=== PATIENT | male | born 1960 | race Caucasian/White ===

== ENCOUNTER 2023-03-24 09:41 | Inpatient (IN) | payer BC, OTHER ==
[2023-03-24] VITALS (24 sets, daily range): BP systolic 102–131; BP diastolic 63–81
[~2023-03-24] VITALS: Ht 193 cm; Wt 111.6 kg
[2023-03-24] MEDS ORDERED: AMIODARONE HCL (50 MG/ ML) 3 ML VIAL IV ONE (09:51)
[2023-03-24] MEDS ORDERED: AMIODARONE 450mg/250ml AE 250 ML IV ONE (09:51)
[2023-03-24] MEDS ORDERED: AMIODARONE HCL 150 MG in D5W 5% 100 ML IV ONE (10:00)
[2023-03-24] MEDS ORDERED: HEPARIN SODIUM (PORCINE) 5000 UNITS/ML 1ML VIAL IV ONE (10:00)
[2023-03-24] MEDS ORDERED: ONDANSETRON HCL 4 MG/2 ML VIAL IV ONE (10:00)
[2023-03-24] MEDS ORDERED: MORPHINE SULFATE 4 MG/ML SYR/VIAL IV ONE (10:00)
[2023-03-24 10:05] LABS: Basophils # (auto) 0.1 10 ^3/uL (0-0.2); Basophils % (auto) 0.9 % (0.0-2.0); Eosinophils # (auto) 0 10 ^3/uL (0-0.8); Eosinophils % (auto) 0.5 % (0.0-7.0); Hematocrit 49.5 % (41.0-53.0); Lymphocytes # (auto) 4.4 10 ^3/uL (0.4-5.4); Lymphocytes % (auto) 48.4 % (10.0-50.0); Mean Corpuscular Hgb Conc. 34.4 g/dL (32.0-36.0); Mean Corpuscular Volume 93.2 fL (80.0-100.0); Monocytes # (auto) 0.6 10 ^3/uL (0-1.3); Monocytes % (auto) 6.2 % (0.0-12.0); Neutrophils # (auto) 3.9 10 ^3/uL (1.6-8.6); Nucleated Red Blood Cells % 0.2 %; Red Blood Cells 5.32 10^6/uL (4.5-5.90); Red Cell Distribution Width 13.5 % (11.8-14.3)
[2023-03-24] MEDS ORDERED: AMIODARONE 450mg/250ml AE 250 ML IV SCH ×2 (10:15→16:15)
[2023-03-24] MEDS ORDERED: MORPHINE SULFATE INJ 2 MG/ml SYRG IV ONE (10:15)
[2023-03-24 10:24] LABS: Calcium 9.2 mg/dL (8.5-10.1); Potassium 3.5 mmol/L (3.5-5.1)
[2023-03-24 10:28] LABS: Total Protein 7.5 g/dL (6.4-8.2)
[2023-03-24] MEDS ORDERED: fentaNYL CITRATE 100 MCG/2 ML VL ONE (10:30)
[2023-03-24] MEDS ORDERED: VERAPAMIL 2.5MG/ML INJ 2ML VIAL IV ONE (10:30)
[2023-03-24] MEDS ORDERED: MIDAZOLAM HCL 2MG/2ML 2ml VIAL (1mg/ml) ONE (10:30)
[2023-03-24] MEDS ORDERED: ATROPINE SULF 1 MG/10ml SYR ONE (10:30)
[2023-03-24] MEDS ORDERED: ANGIOMAX 250 MG VIAL IV ONE ×2 (10:30→11:24)
[2023-03-24] MEDS ORDERED: EPINEPHrine HCL 1 MG/10 ML SYRG ONE (10:31)
[2023-03-24] MEDS ORDERED: LIDOCAINE 2%HCL (LOCAL ANESTH.) INJ 20ML MDV ONE (10:31)
[2023-03-24] MEDS ORDERED: SODIUM CHL 0.9% 50 ML ONE ×2 (10:31→11:24)
[2023-03-24] MEDS ORDERED: IODIXANOL 320MG/ML 100ML BTL IV ONE ×2 (10:36→11:13)
[2023-03-24] MEDS ORDERED: MORPHINE SULFATE INJ 2 MG/ml SYRG IV PRN ×2 (10:45→11:45)
[2023-03-24] MEDS ORDERED: NITROGLYCERIN 0.4 MG SL TAB SL PRN ×2 (10:45→11:45)
[2023-03-24] MEDS ORDERED: TICAGRELOR 90 MG TAB ONE (11:08)
[2023-03-24 11:09] LABS: INR 1.04 (0.9-1.15); Partial Thromboplastin Time 24.4 SEC (24.5-34.5)
[2023-03-24] MEDS ORDERED: ADENOSINE 6 MG/2 ML INJ IV ONE (11:10)
[2023-03-24 11:16] LABS: Cholesterol 224 mg/dL (< 200); Triglycerides 161 mg/dL (< 150)
[2023-03-24 11:20] LABS: HDL Cholesterol 36 mg/dL (40-59); LDL Cholesterol 154 mg/dL (< 100)
[2023-03-24] MEDS ORDERED: HALOPERIDOL LACTATE 5 MG/ML INJ VIAL IM ONE (12:00)
[2023-03-24] MEDS ORDERED: LISI-275 PO (12:48)
[2023-03-24] MEDS ORDERED: ONDANSETRON HCL 4 MG/2 ML VIAL IV PRN (13:30)
[2023-03-24] MEDS: ASPirin 81 mg TAB PO SCH (13:56)
[2023-03-24] MEDS ORDERED: AMIODARONE HCL 200 MG TAB PO ONE (15:45)
[2023-03-24] MEDS ORDERED: MAGNESIUM SULFATE 1GM/100ML 100 ML IV ONE (16:00)
[2023-03-24] MEDS ORDERED: POTASSIUM CHL 20 Meq TABLET PO ONE (16:00)
[2023-03-24 19:39] LABS: Urine WBC None Seen /hpf (0 - 3)
[2023-03-24 20:55] LABS: Urine Bacteria FEW /hpf (None Seen); Urine Blood Negative /uL (Negative); Urine Mucus FEW (None Seen)
[2023-03-24 20:58] LABS: Urine Specific Gravity > 1.050 (1.001-1.035)
[2023-03-24] MEDS: SACUBITRIL-VALSARTAN 24mg/26mg TAB PO SCH (22:46)
[2023-03-24] MEDS: AMIODARONE HCL 200 MG TAB PO SCH (22:46)
[2023-03-24] MEDS: METOPROLOL TARTRATE 25 MG TAB PO SCH (22:47)
[2023-03-24] MEDS: ATORVASTATIN 20 MG TAB PO SCH (22:48)
[2023-03-24] MEDS: TICAGRELOR 90 MG TAB PO SCH (22:48)
[2023-03-25] VITALS (23 sets, daily range): BP systolic 95–114; BP diastolic 51–71
[2023-03-25 05:08] LABS: Basophils # (auto) 0 10 ^3/uL (0-0.2); Basophils % (auto) 0.1 % (0.0-2.0); Eosinophils # (auto) 0 10 ^3/uL (0-0.8); Eosinophils % (auto) 0.2 % (0.0-7.0); Hematocrit 46.7 % (41.0-53.0); Hemoglobin 16.5 g/dL (13.5-17.5); Lymphocytes # (auto) 1.6 10 ^3/uL (0.4-5.4); Lymphocytes % (auto) 16.4 % (10.0-50.0); Mean Corpuscular Hgb Conc. 35.3 g/dL (32.0-36.0); Mean Corpuscular Volume 93.4 fL (80.0-100.0); Monocytes # (auto) 0.6 10 ^3/uL (0-1.3); Monocytes % (auto) 6.3 % (0.0-12.0); Neutrophils # (auto) 7.5 10 ^3/uL (1.6-8.6); Nucleated Red Blood Cells % 0.1 %; Red Cell Distribution Width 13.5 % (11.8-14.3); White Blood Cell 9.7 10^3/uL (4.4-10.8)
[2023-03-25 05:25] LABS: Albumin 3.7 g/dL (3.4-5.0); Calcium 8.4 mg/dL (8.5-10.1); Magnesium 2.3 mg/dL (1.6-2.6); Potassium 3.9 mmol/L (3.5-5.1)
[2023-03-25 05:28] LABS: BUN/Creatinine Ratio 15.4 (10.0-20.0)
[2023-03-25 05:39] LABS: Bilirubin, Total 1.3 mg/dL (0.2-1.0); Total Protein 6.9 g/dL (6.4-8.2)
[2023-03-25] MEDS: AMIODARONE HCL 200 MG TAB PO SCH (09:44)
[2023-03-25] MEDS: TICAGRELOR 90 MG TAB PO SCH ×2 (09:44→23:22)
[2023-03-25] MEDS: SACUBITRIL-VALSARTAN 24mg/26mg TAB PO SCH ×2 (09:44→23:22)
[2023-03-25] MEDS: ASPirin 81 mg TAB PO SCH (09:45)
[2023-03-25] MEDS: METOPROLOL TARTRATE 25 MG TAB PO SCH (09:46)
[2023-03-25] MEDS: HYDROcodone-ACET 5/325MG TAB PO PRN ×2 (15:14→23:23)
[2023-03-25] MEDS: CARVEDILOL 3.125 MG TAB PO SCH (22:00)
[2023-03-25] MEDS: ATORVASTATIN 20 MG TAB PO SCH (23:23)
[2023-03-26] VITALS (17 sets, daily range): BP systolic 72–123; BP diastolic 40–76
[2023-03-26] MEDS: HYDROcodone-ACET 5/325MG TAB PO PRN (08:40)
[2023-03-26] MEDS: CARVEDILOL 3.125 MG TAB PO SCH ×2 (09:54→21:14)
[2023-03-26] MEDS: SACUBITRIL-VALSARTAN 24mg/26mg TAB PO SCH ×2 (09:55→21:08)
[2023-03-26] MEDS: TICAGRELOR 90 MG TAB PO SCH ×2 (09:55→21:18)
[2023-03-26] MEDS: ASPirin 81 mg TAB PO SCH (09:55)
[2023-03-26] MEDS ORDERED: ERGOCALCIFEROL 50,000 UNIT(1.25MG) CAP PO SCH (15:45)
[2023-03-26] MEDS: ATORVASTATIN 20 MG TAB PO SCH (21:09)
[2023-03-27 05:00] VITALS: BP 110/70
[2023-03-27 06:30] LABS: Basophils # (auto) 0 10 ^3/uL (0-0.2); Basophils % (auto) 0.2 % (0.0-2.0); Eosinophils # (auto) 0.1 10 ^3/uL (0-0.8); Eosinophils % (auto) 0.9 % (0.0-7.0); Hematocrit 47.8 % (41.0-53.0); Hemoglobin 16.7 g/dL (13.5-17.5); Lymphocytes # (auto) 1.8 10 ^3/uL (0.4-5.4); Lymphocytes % (auto) 23.9 % (10.0-50.0); Mean Corpuscular Hemoglobin 32.9 pg (28.0-32.0); Mean Corpuscular Volume 94.1 fL (80.0-100.0); Monocytes # (auto) 0.5 10 ^3/uL (0-1.3); Monocytes % (auto) 7.1 % (0.0-12.0); Neutrophils # (auto) 5.2 10 ^3/uL (1.6-8.6); Neutrophils % (auto) 67.9 % (37.0-80.0); Nucleated Red Blood Cells % 0.1 %; Red Blood Cells 5.08 10^6/uL (4.5-5.90); Red Cell Distribution Width 13.1 % (11.8-14.3); White Blood Cell 7.7 10^3/uL (4.4-10.8)
[2023-03-27 06:39] LABS: Albumin 3.5 g/dL (3.4-5.0); Calcium 8.4 mg/dL (8.5-10.1); Potassium 4.1 mmol/L (3.5-5.1)
[2023-03-27 06:44] LABS: BUN/Creatinine Ratio 19.5 (10.0-20.0); Bilirubin, Total 1.7 mg/dL (0.2-1.0); Total Protein 7.3 g/dL (6.4-8.2)
[2023-03-27 08:00] VITALS: BP 107/59
[2023-03-27] MEDS: ASPirin 81 mg TAB PO SCH (08:17)
[2023-03-27] MEDS: TICAGRELOR 90 MG TAB PO SCH (08:17)
[2023-03-27] MEDS: CARVEDILOL 3.125 MG TAB PO SCH (08:19)
[2023-03-27] MEDS: SACUBITRIL-VALSARTAN 24mg/26mg TAB PO SCH (08:19)
[2023-03-27 09:00] VITALS: BP 107/59
[2023-03-27] MEDS ORDERED: ERGO1CAP23 PO (10:48)
[2023-03-27] MEDS ORDERED: TICA90TA PO (10:48)
[2023-03-27] MEDS ORDERED: ATOR20TA50 PO (10:48)
[2023-03-27] MEDS ORDERED: SACU1TAB PO (10:48)
[2023-03-27] MEDS ORDERED: ASPI-325 PO (10:48)
[2023-03-27] MEDS ORDERED: CAR3125T PO (10:48)
== END 2023-03-27 13:30 | disposition home or self-care (01) | DRG 246 ==
LOC: ER 09:41 → EDBD 09:41 → TELE 11:34 → ICU CENTRL 12:12 → TELE-WESTW 03-26 23:00
PROVIDERS: ADMIT Internal Medicine; ATTEND Internal Medicine
PROC: 027034Z Dilation of Coronary Artery, One Artery with Drug-eluting Intraluminal Device, Percutaneous Approach (ICD-10-PCS; principal; 2023-03-24)
PROC: 4A023N7 Measurement of Cardiac Sampling and Pressure, Left Heart, Percutaneous Approach (ICD-10-PCS; 2023-03-24)
PROC: B211YZZ Fluoroscopy of Multiple Coronary Arteries using Other Contrast (ICD-10-PCS; 2023-03-24)
PROC: B215YZZ Fluoroscopy of Left Heart using Other Contrast (ICD-10-PCS; 2023-03-24)
DX: I21.09 ST elevation (STEMI) myocardial infarction involving other coronary artery of anterior wall (principal); I46.9 Cardiac arrest, cause unspecified; I50.21 Acute systolic (congestive) heart failure; I47.20 Ventricular tachycardia, unspecified; E66.9 Obesity, unspecified; I11.0 Hypertensive heart disease with heart failure; I25.5 Ischemic cardiomyopathy; E78.5 Hyperlipidemia, unspecified; E55.9 Vitamin D deficiency, unspecified; Z79.02 Long term (current) use of antithrombotics/antiplatelets; Z88.0 Allergy status to penicillin; Z68.29 Body mass index [BMI] 29.0-29.9, adult
CPT/HCPCS: 36415; 71045; 80053; 80061; 81001; 82306; 83036; 83735; 83880; 84443; 84484; 85025; 85610; 85730; 86850; 86900; 86901; 87081; 92941; 93005; 93306; 93458; 96365; 96375; 99152; 99153; 99291; G0378; J0153; J2250; J2405; J7060; Q9967

== ENCOUNTER 2024-06-14 11:10 | Emergency (ER) | payer BC, OTHER ==
[~2024-06-14] VITALS: Ht 182.9 cm; Wt 97.7 kg
[~2024-06-14 11:10] MED LIST: ASPI-325 PO; ATOR20TA50 PO; CARV-214 PO; ERGO1CAP23 PO; SACU1TAB PO; TICA90TA PO
[2024-06-14 12:27] VITALS: BP 138/82; PULSE 61; RESP 18; TEMP 99.1; O2SAT 99
== END 2024-06-14 13:25 | disposition home or self-care (01) ==
LOC: ER 11:10
DX: S80.11XA Contusion of right lower leg, initial encounter (principal); S90.31XA Contusion of right foot, initial encounter; I10 Essential (primary) hypertension; Z88.0 Allergy status to penicillin; Z79.899 Other long term (current) drug therapy; W22.8XXA Striking against or struck by other objects, initial encounter; Y93.01 Activity, walking, marching and hiking; Y92.89 Other specified places as the place of occurrence of the external cause; Y99.8 Other external cause status
CPT/HCPCS: 93971